=== PATIENT | female | born 1945 | race Caucasian/White ===

== ENCOUNTER → 2020-12-11 15:18 | Outpatient (CLI) | payer MEDICARE, OTHER, SELFPAY ==
--- NOTE | 2020-12-11 15:28 | DI.RAD.S_ITS ---
PROCEDURE: XR HIP W PEL IF DONE LT 2V COMPARISON: None. INDICATIONS: PAIN FINDINGS: Two views of the left hip were performed. There is no fracture or dislocation. The left sacroiliac joint and symphysis pubis are normal. There are osteophytes adjacent to the left greater trochanter. IMPRESSION: No acute abnormality. No fracture. Dictated by: Shilo Ronquillo M.D. on 12/11/2020 at 18:42 Approved by: Shilo Ronquillo M.D. on 12/11/2020 at 18:45
--- NOTE | 2020-12-11 15:28 | DI.RAD.S_ITS ---
PROCEDURE: XR SACRUM COCCYX MIN 2V INDICATIONS: PAIN TECHNIQUE: 3 views of the sacrum and coccyx acquired. COMPARISON: [facility], CR, XR LUMBAR SPINE 2-3V, 12/11/2020, 15:41. FINDINGS: Bones: No fractures or dislocations. No suspicious bony lesions. There is degenerative disc disease of L5-S1. The sacroiliac joints are normal. The symphysis pubis is normal. Soft tissues: Visualized bowel gas pattern is normal. No suspicious soft tissue densities. IMPRESSION: 1. No acute abnormality of the sacrum. 2. Degenerative disc disease of L5-S1. Dictated by: Shilo Ronquillo M.D. on 12/11/2020 at 18:45 Approved by: Shilo Ronquillo M.D. on 12/11/2020 at 18:46
--- NOTE | 2020-12-11 15:28 | DI.RAD.S_ITS ---
PROCEDURE: XR LUMBAR SPINE 2-3V INDICATIONS: pain TECHNIQUE: 3 views of the lumbar spine were acquired. COMPARISON: None. FINDINGS: Bones: 5 [id number] vertebrae are present. There is normal bony alignment. No vertebral body compression fractures. No suspicious bony lesions. There is disc space narrowing consistent with degenerative disc disease of L3-4 and L5-S1. There is facet arthrosis of L4-5 and L5-S1. Soft tissues: Overlying bowel gas pattern is normal. No suspicious soft tissue calcifications. The aorta has atherosclerotic calcifications. IMPRESSION: 1. No acute abnormality of the lumbar spine. 2. Degenerative disc disease of L3-4 and L5-S1. 3. Facet arthrosis in the lower lumbar spine. Dictated by: Shilo Ronquillo M.D. on 12/11/2020 at 18:46 Approved by: Shilo Ronquillo M.D. on 12/11/2020 at 18:48
== END ==
PROVIDERS: PCP Internal Medicine; Referring Provider Physician Assistant; Visit Provider Physician Assistant
DX: M54.5 Low back pain (principal); M25.552 Pain in left hip; M53.3 Sacrococcygeal disorders, not elsewhere classified
CPT/HCPCS: 72100; 72220; 73502

== ENCOUNTER → 2024-04-17 08:19 | Outpatient (CLI) | payer MEDICARE, OTHER, SELFPAY ==
--- NOTE | 2024-04-17 08:20 | DI.US.S_ITS ---
PROCEDURE: US RENAL COMPLETE INDICATIONS: BLADDER WALL THICKENING / RENAL CYST TECHNIQUE: Real-time scanning was performed of the kidneys and bladder, with image documentation. COMPARISON: [facility], CR, XR PELVIS WITH LATERAL HIP LEFT, 08/01/2023, 9:14. [facility], MR, MR HIP LEFT WITHOUT CONTRAST, 02/24/2024, 14:19. FINDINGS: Kidneys: Kidneys are normal in size. Right kidney measures 10.7 cm long; left kidney measures 12.7 cm long. Right renal cortical thickness is 1 cm cm; left renal cortical thickness is 0.6 cm cm. Renal cortical echotexture is normal. No hydronephrosis. Multiple anechoic cysts. A larger cyst at the superior pole of the right kidney measuring 2.4 cm. A larger cyst at the superior pole of the left kidney measuring 6.5 cm. No suspicious solid mass lesions. A few echogenic foci bilaterally which most likely represent small kidney stones. Bladder: Bladder wall thickness is within normal limits. Pre-void bladder volume is 178 mL. Post-void residual is 26 mL. Pre-void images demonstrate no intraluminal masses or stones. On pre-void images, both ureteral jets are noted with color Doppler interrogation. (Of note, ureteral jets may not be detectable in up to 25% of cases due to insufficient differences in specific gravity between ureteral and bladder urine). Miscellaneous: No free pelvic fluid. Liver is increased in echogenicity. Mobile gallstones. No gallbladder wall thickening. IMPRESSION: 1. No hydronephrosis. 2. Bladder wall thickness is within normal limits. Postvoid residual 26 cc. 3. Multiple anechoic benign-appearing renal cysts. 4. Probable small kidney stones. 5. Small gallstones. 6. Increased hepatic echogenicity most consistent with hepatic steatosis. Other forms of hepatocellular disease could have similar appearance. Dictated by: Sam Palomares M.D. on 04/17/2024 at 11:05 Approved by: Sam Palomares M.D. on 04/17/2024 at 11:11
== END ==
PROVIDERS: PCP Family Medicine; Referring Provider Family Medicine; Visit Provider Family Medicine
DX: N32.89 Other specified disorders of bladder (principal); N28.1 Cyst of kidney, acquired; K80.20 Calculus of gallbladder without cholecystitis without obstruction
CPT/HCPCS: 76770

== ENCOUNTER → 2024-08-22 11:24 | Outpatient (CLI) | payer MEDICARE, OTHER, SELFPAY ==
--- NOTE | 2024-08-22 11:27 | DI.RAD.S_ITS ---
PROCEDURE: FL UPPER GI SERIES INDICATIONS: ACUTE COUGH COMPARISON: None. FINDINGS: KUB: Preprocedural divorce lawyer film demonstrates a normal bowel gas pattern. No suspicious abdominal calcifications. Visualized solid organ contours appear normal. Status post left hip total arthroplasty without hardware complication in the field of view. Esophagus: Esophageal mucosa is normal on air-contrast views. On single-contrast views, there is normal esophageal peristalsis, aside from a few tertiary esophageal contractions. No strictures, extrinsic mass effects, or diverticula. Small hiatal hernia with spontaneous esophageal reflux to the level of the distal thoracic esophagus. There is normal transit of a calibrated barium tablet through the esophagus. Stomach: The stomach is normally distensible, with normal rugal fold thickness. No mucosal masses or ulcers. Pylorus and duodenal bulb appear normal in morphology. Duodenal folds are normal in thickness as well. IMPRESSION: 1. Mild spontaneous esophageal reflux to the distal thoracic esophagus, with associated mild tertiary esophageal contractions. 2. Small hiatal hernia. 3. No acute fluoroscopic abnormality of the stomach. Dictated by: Moy Scott M.D. on 08/22/2024 at 15:33 Approved by: Moy Scott M.D. on 08/22/2024 at 15:34
== END ==
PROVIDERS: PCP Family Medicine; Referring Provider Family Medicine; Visit Provider Family Medicine
DX: K21.9 Gastro-esophageal reflux disease without esophagitis (principal); K44.9 Diaphragmatic hernia without obstruction or gangrene; R05.1 Acute cough
CPT/HCPCS: 74240

== ENCOUNTER → 2024-09-21 08:01 | Outpatient (CLI) | payer MEDICARE, OTHER, SELFPAY ==
--- NOTE | 2024-09-21 08:03 | DI.US.S_ITS ---
PROCEDURE: US ABDOMEN LIMITED INDICATIONS: NAFLD, calculus of gallbladder TECHNIQUE: Real-time scanning was performed of the abdominal and retroperitoneal organs, with image documentation. COMPARISON: None. FINDINGS: Liver: Liver is normal in size and homogeneous in echotexture. Gallbladder: No gallstones. No gallbladder wall thickening or pericholecystic fluid. No sonographic Denson's sign. Biliary ducts: Intrahepatic bile ducts are non-dilated. Extrahepatic bile duct caliber measures 4.5 mm. Normal is 6-7 mm or less in diameter, or 10 mm or less post-cholecystectomy. Pancreas: Visualized portions of the pancreas are sonographically normal. Miscellaneous: No free abdominal fluid. Simple appearing cysts are noted in right kidney measures up to 1.8 cm in size in upper pole right kidney and up to 3.9 cm in size in lower pole right kidney. IMPRESSION: 1. Normal appearing liver, gallbladder, and pancreas. No biliary ductal dilatation. 2. Simple appearing right renal cysts as above. No hydronephrosis. Dictated by: Kaz Young M.D. on 09/21/2024 at 11:41 Approved by: Kaz Young M.D. on 09/21/2024 at 11:41
--- NOTE | 2024-09-21 08:03 | DI.US.S_ITS ---
PROCEDURE: US RENAL COMPLETE INDICATIONS: FOLLOW UP RENAL CYSTS TECHNIQUE: Real-time scanning was performed of the kidneys and bladder, with image documentation. COMPARISON: [facility], , RENAL COMPLETE, 04/17/2024, 8:31. FINDINGS: Kidneys: Kidneys are normal in size. Right kidney measures 10.8 cm long; left kidney measures 12.5 cm long (including renal cysts). Right renal cortical thickness is 1.4 cm; left renal cortical thickness is 1.2 cm. Renal cortical echotexture is normal. Suspected bilateral nonobstructing nephrolithiasis, largest measuring 3 millimeters on the right and 4 millimeters in the left No suspicious solid mass lesions. Multiple bilateral renal cystic lesions, the majority of which demonstrate no internal complexity; Bosniak 1 equivalent. On the midpole of the right kidney, there is a cyst with a thin internal septation measuring 1.6 centimeters; Bosniak 2 equivalent. Bladder: Pre-void bladder volume is 136 mL. Post-void residual is 24 mL. Pre-void images demonstrate no intraluminal masses or stones. On pre-void images, both ureteral jets are noted with color Doppler interrogation. (Of note, ureteral jets may not be detectable in up to 25% of cases due to insufficient differences in specific gravity between ureteral and bladder urine). Miscellaneous: No free pelvic fluid. IMPRESSION: Benign bilateral renal cystic lesions. No further follow-up is indicated. Suspected bilateral nonobstructing nephrolithiasis, largest measuring 3 millimeters on the right and 4 millimeters on the left. Dictated by: Tony Gandara M.D. on 09/21/2024 at 15:48 Approved by: Tony Gandara M.D. on 09/21/2024 at 15:50
== END ==
PROVIDERS: PCP Family Medicine; Referring Provider Family Medicine; Visit Provider Family Medicine
DX: K80.20 Calculus of gallbladder without cholecystitis without obstruction (principal); K76.0 Fatty (change of) liver, not elsewhere classified; N28.1 Cyst of kidney, acquired
CPT/HCPCS: 76705; 76770

== ENCOUNTER → 2024-09-25 17:11 | Outpatient (CLI) | payer MEDICARE, OTHER, SELFPAY ==
[2024-09-27 03:35] LABS: IGA 52 mg/dL (64-422); IGG 737 mg/dL (586-1602); IGM 30 mg/dL (26-217)
== END ==
PROVIDERS: PCP Family Medicine; Referring Provider Internal Medicine; Visit Provider Internal Medicine
DX: J47.9 Bronchiectasis, uncomplicated (principal); J45.20 Mild intermittent asthma, uncomplicated; K44.9 Diaphragmatic hernia without obstruction or gangrene; R05.3 Chronic cough; K21.9 Gastro-esophageal reflux disease without esophagitis
CPT/HCPCS: 36415; 82784

== ENCOUNTER → 2024-12-14 12:41 | Outpatient (CLI) | payer MEDICARE, OTHER, SELFPAY ==
--- NOTE | 2024-12-14 12:42 | DI.RAD.S_ITS ---
PROCEDURE: XR DEXA AXIAL SKELETON INDICATIONS: OSTEOPENIA COMPARISON: None. FINDINGS: Lumbar Spine: Bone mineral density 0.978 g/cm2, T score -0.6. Right Femoral Neck: Bone mineral density 0.681 g/cm2, T score -1.5. Right Hip: Bone mineral density 0.789 g/cm2, T score -1.3. Fracture Risk Calculation (when applicable): 10-year fracture risk of a major osteoporotic fracture 18 percent and of a hip fracture 4.6 percent. (T score greater or equal to -1.0 to: NORMAL) (T score from -1.1 to -2.4: OSTEOPENIA) (T score less than or equal to -2.5: OSTEOPOROSIS) IMPRESSION: Osteopenia--- recommend repeat DEXA in 2-3 years for reassessment. Follow-up guidelines as follows: Osteoporosis: Consider a repeat DEXA and Vertebral Fracture Assessment (VFA) exam in 2 years or sooner if medically necessary, to reassess this patient's status. Osteopenia: Consider a repeat DEXA in 2-3 years to reassess this patient's status, or if there is a new clinical indication. Normal: Consider a repeat DEXA in 5 years or sooner, or if there is a new clinical indication. All treatment decisions require clinical judgment and consideration of individual patient factors, including patient preferences, comorbidities, previous drug use, risk factors not captured in the FRAX model (e.g., frailty, falls, vitamin D deficiency, increased bone turnover, interval significant decline in bone density ) and possible under- or over-estimation of fracture risk by FRAX. In addition, the NOF Guide recommends that FDA-approved medical therapies be considered in postmenopausal women and men age >= 50 years with a: * Hip or vertebral (clinical or morphometric) fracture * T-score of <=-2.5 at the spine or hip * Ten-year fracture probability by FRAX of >= 3% for hip fracture or >=20% for major osteoporotic fracture. Dictated by: Moy Pollard M.D. on 12/14/2024 at 19:05 Approved by: Moy Pollard M.D. on 12/14/2024 at 19:06
== END ==
LOC: RAD 12:42
PROVIDERS: PCP Family Medicine; Referring Provider Family Medicine; Visit Provider Family Medicine
DX: M85.89 Other specified disorders of bone density and structure, multiple sites (principal)
CPT/HCPCS: 77080